=== PATIENT | female | born 1995 | race Caucasian/White ===

== ENCOUNTER 2020-08-25 08:02 | Outpatient (CLI) | payer OTHER, SELFPAY ==
--- NOTE | 2020-08-25 08:31 | PC.NURSE ---
RECEIVED covid VACCINE. 5 MINUTES AFTER DEVELOPED DIZZINESS FLUSHING DIAPHORESIS PLACED SUPINE VITALS 145-20-140/95 100% RA NO SOB NOTED TNGING TO EXTREMITES 911 CALLED CARE TRANSFERED TO EMS REPORT CALLED TO [facility] ER
--- NOTE | 2020-08-25 08:40 | PC.NURSE ---
FEELING BETTER IS GOING TO HAVE HER MOTHER COME GET HER
== END 2020-08-25 08:03 | disposition home or self-care (01) ==
LOC: ANHCOVIDVC 08:02
PROVIDERS: PCP Otolaryngology
DX: Z23 Encounter for immunization (principal)
CPT/HCPCS: 0001A; 91300

== ENCOUNTER 2020-09-15 08:01 | Outpatient (CLI) | payer OTHER, SELFPAY ==
--- NOTE | 2020-09-15 08:17 | PC.NURSE ---
received COVID vaccine # 2 When she received # 1 had and episode of rapid heartrate and feeling funny Had same issue this time resting in room 1 HR 145 resp20 pulse ox 100 % RA BP 131/88 Boyfriend at bedside taking ater by mouth. Vitals 0820 HR 86 Resp 20 BP 130/76 Pulse ox 100 %
== END 2020-09-15 08:02 | disposition home or self-care (01) ==
LOC: ANHCOVIDVC 08:01
PROVIDERS: PCP Family Medicine
DX: Z23 Encounter for immunization (principal)
CPT/HCPCS: 0002A; 91300

== ENCOUNTER 2020-11-29 19:23 | Emergency (ER) | payer OTHER, SELFPAY ==
[2020-11-29] VITALS (7 sets, daily range): BP systolic 110–161; BP diastolic 80–102; PULSE 90–138; RESP 10–19; TEMP 37.3; O2SAT 96–100
--- NOTE | 2020-11-29 21:23 | ED.GENADULT ---
HPI - General Adult General Chief complaint: Shortness of Breath/Dyspnea Stated complaint: difficulty breathing Time Seen by Provider: 11/29/20 20:42 Source: patient and family Mode of arrival: ambulatory Limitations: no limitations History of Present Illness HPI narrative: 25-year-old with a history of asthma, Ana's thyroiditis, anxiety here with complaints of shortness of breath. Patient states that few hours ago she was unable to catch her breath. She also complains of mild cough which is nonproductive. She denies any fever or chills. The time she came into the ER room she states that she is feeling much better. No history of fever or chills. Onset (ago): hour(s) (2) Severity: mild Pain Consistency: now resolved Exacerbating factors: none Associated symptoms: denies other symptoms Related Data Home Medications Medication Instructions Recorded Confirmed levonorgestrel 20 mcg/24 hours (6 1 device INTRAUTERINE ONCE 09/08/20 09/08/20 yrs) 52 mg intrauterine device Allergies Allergy/AdvReac Type Severity Reaction Status Date / Time No Known Allergies Allergy Verified 11/29/20 20:33 Review of Systems Review of Systems: All systems reviewed & are unremarkable except as noted in HPI and below Constitutional: Constitutional: Reports no additional constitutional complaints Eyes: Eyes: Reports no additional eye complaints Cardiovascular: Cardiovascular: Reports no additional cardiovascular complaints Respiratory: Respiratory: Reports as per HPI Gastrointestinal: Gastrointestinal: Reports no additional gastrointestinal complaints Musculoskeletal: Musculoskeletal: Reports no additional musculoskeletal complaints Integumentary/Breasts: Skin/Breast: Reports system reviewed and no additional complaints, except as docu Neurologic: Reports system reviewed and no additional complaints, except as documented Psychiatric: Psychiatric: Reports no additional psychiatric complaints [facility] Past Medical History Medical History Nontoxic single thyroid nodule 2017 u/s thyroid: no nodule Recurrent vaginitis Family History Family History Father Hypertension Mother Asthma Grandparent Family history of malignant neoplasm of breast Other Family history of migraine headaches Social History Social History Smoking status: Never smoker Gender identity (if verbalized by the patient): Female Exam Narrative: Exam Narrative: GENERAL: Well-appearing, well-nourished, and in no acute distress. HEAD: Normocephalic, atraumatic. EYES: PERRLA and EOMI. NECK: Supple. CHEST: Clear to auscultation. No respiratory distress. HEART: Regular rate and rhythm. No murmur heard. Normal peripheral pulses. ABDOMEN: Soft, nontender, nondistended, normal active bowel sounds. EXTREMITIES: Normal range of motion. No edema. SKIN: Warm, dry, no rash. NEURO: No focal deficits. Alert and oriented x3. PSYCH: Normal mood and affect. Course Course Emergency Course: Patient presently having no complaints at this time. Patient states that she ran out of her inhaler advised her to use albuterol inhaler as needed. Vital Signs Vital signs: Vital Signs Temperature 37.3 C 11/29/20 19:24 Pulse Rate 138 H 11/29/20 19:24 Respiratory Rate 18 11/29/20 19:24 Blood Pressure 161/102 H 11/29/20 19:24 Pulse Oximetry 100 11/29/20 19:24 Temperature 37.3 C 11/29/20 19:24 Pulse Rate 110 H 11/29/20 20:32 Respiratory Rate 12 11/29/20 20:31 Blood Pressure 123/93 H 11/29/20 20:31 Pulse Oximetry 100 11/29/20 20:31 Medical Decision Making Vital Signs Vital Signs: Vital Signs Temperature 37.3 C 11/29/20 19:24 Pulse Rate 138 H 11/29/20 19:24 Respiratory Rate 18 11/29/20 19:24 Blood Pressure 161/102 H 11/29/20 19:24 Pulse Oximetry 100
== END 2020-11-29 21:40 | disposition home or self-care (01) ==
PROVIDERS: Emergency Provider Family Medicine; PCP Family Medicine
DX: J45.909 Unspecified asthma, uncomplicated (principal); E06.3 Autoimmune thyroiditis
CPT/HCPCS: 99283

== ENCOUNTER → 2023-01-25 09:10 | Outpatient (CLI) | payer SELFPAY ==
--- NOTE | ~2023-01-25 | US_ITS ---
EXAMINATION: US OB <= 14 weeks fetus DATE: 01/25/2023 09:35 INDICATION: Gestational dating and viability TECHNIQUE: Real-time transabdominal and transvaginal obstetric ultrasound. FINDINGS: No prior studies for comparison. The uterus measures 10.5 x 6.8 x 8.6 cm. There is an intrauterine gestational sac, with pole id entified. The crown rump length measures 3.42 cm, which correlates with a estimated gestational age of 10 weeks 2 days. heart tones are identified measuring 168 BPM. The ovaries are within norm al limits. No free fluid in the pelvis. IMPRESSION: 1. SL IUP with an EGA of 10 weeks, 2 days (EDC by current ultrasound of 08/21/2023). Reviewed, dictated and finalized at location B. IMPRESSION: 1. SL IUP with an EGA of 10 weeks, 2 days (EDC by current ultrasound of 08/21/19 24).
== END ==
PROVIDERS: PCP Advanced Practice Midwife; Visit Provider Advanced Practice Midwife
DX: O36.80X0 Pregnancy with inconclusive fetal viability, not applicable or unspecified (principal); Z3A.10 10 weeks gestation of pregnancy
CPT/HCPCS: 76801

== ENCOUNTER 2023-08-12 17:14 | Inpatient (IN) | payer OTHER, SELFPAY ==
[2023-08-12] VITALS (24 sets, daily range): BP systolic 120–146; BP diastolic 71–99; PULSE 64–106; TEMP 36.8–37.1
[2023-08-12 17:44] LABS: Basophils Percent Auto 0.6 % (0.2-1.2); Eosinophils Absolute Auto 0.1 K/mm3 (0-0.3); Eosinophils Percent Auto 1.4 % (0-4.4); Hematocrit 42.5 % (37.0-47.0); Hemoglobin 13.7 g/dL (12.0-15.0); Immature Granulocyte Absolute 0.07 K/mm3 (0.00-0.031); Lymphocytes Absolute Auto 1.85 K/mm3 (0.9-3.2); Lymphocytes Percent Auto 25.7 % (18.3-44.2); Mean Corpuscular HGB Conc 32.2 g/dl (32-36); Mean Corpuscular Hemoglobin 30.6 pg (26-34); Mean Corpuscular Volume 95.1 fl (80-100); Mean Platelet Volume 12.9 fl (7.4-10.4); Monocytes Absolute Auto 0.5 K/mm3 (0.1-0.6); Monocytes Percent Auto 7.4 % (2.6-8.5); Neutrophils Absolute Auto 4.6 K/mm3 (1.3-6.7); Neutrophils Percent Auto 63.9 % (45.5-73.1); Platelet Count Result 195 k/mm3 (150-375); Red Blood Count 4.47 M/mm3 (4.2-5.4); Red Cell Distribution Width 12.4 % (11.5-14.5); White Blood Count 7.2 K/mm3 (4.5-10.0)
[2023-08-12 17:51] LABS: Creatinine Urine 47.4 mg/dL; Total Protein Urine Random 9 mg/dL; Ur Ttl Prot Creatinine Ratio 0.19 mg/mg (0-0.20)
[2023-08-12 17:59] LABS: Alanine Aminotransferase 22 U/L (6-35); Albumin Level 3.7 g/dL (3.5-5.1); Alkaline Phosphatase 139 U/L (38-126); Anion Gap 8 mmol/L (4-12); Aspartate Amino Transferase 34 U/L (14-36); Bilirubin,Total 0.3 mg/dL (0.2-1.3); Blood Urea Nitrogen 15 mg/dL (7-17); Calcium 9.3 mg/dL (8.4-10.2); Carbon Dioxide 20 mmol/L (22-30); Chloride 103 mmol/L (98-107); Estimated Glomerular Filt Rate > 60; Glucose 83 mg/dL (65-110); Sodium 131 mmol/L (137-145); Uric Acid 5.4 mg/dL (2.5-7.5)
[2023-08-12 18:05] LABS: Appearance Urine Clear (Clear); Bilirubin Urine Negative (Negative); Blood Urine Negative (Negative); Color Urine Yellow (Yellow); Glucose Urine UA Negative (Negative); Ketones Urine Negative (Negative); Leukocyte Esterase Ur Negative LEU/UL (Negative); Nitrate Urine Negative (Negative); Protein Urine Negative (Negative); Urobilinogen Urine 0.2 mg/dL (<2.0); pH Urine 6.5 (5.0-9.0)
--- NOTE | 2023-08-12 18:08 | LDADM ---
This patient, Gloria Del Rio, was admitted to Labor/Delivery/Recovery 106 on 08/12/23 at 17:14. Plans for labor, pain management and were discussed with patient. Patient/family oriented to hospital policies and general routines including ID bracelet, bed and alarms, visiting hours, pain management, procedures, bathroom and other care routines, personal items, smoking policy, room service/diet and guest tray routines, security routines, and visiting hours. Patient/Family are encouraged to report perceived risks to care and to ask questions if they do not understand what they are told or what they should do. See OBIX for further documentation.
[2023-08-12 18:25] LABS: Add Urine Microscopic? NO
[2023-08-12] MEDS: LACTATED RINGERS 1,000 ML 125 ML IV CONT ×2 (18:28→21:46)
[2023-08-12] MEDS: OXYTOCIN 30 UNITS/NS 500 ML 30 UNITS/500 ML BAG IV CONT (18:29)
[2023-08-12] MEDS: AMPICILLIN 2 GM/NS 100 ML 2 GM/100 ML BAG IVPB (18:29)
--- NOTE | 2023-08-12 19:13 | WPDANESEPP ---
Anes - Eval Pre Procedure Procedure: Labor epudural Date/Time: 08/12/23 19:13 Pre Op Diagnosis: Labor Patient Data Age: 27 Gender: F Height: Weight: Allergies Allergy/AdvReac Type Severity Reaction Status Date / Time No Known Allergies Allergy Verified 07/01/23 16:30 Home Medications Medication Instructions Recorded Confirmed Type levothyroxine 75 mcg tablet 75 mcg PO DAILY #90 tabs 01/01/23 Rx Laboratory Tests 08/12/23 08/12/23 08/12/23 17:24 17:56 18:16 WBC 7.2 K/mm3 (4.5-10.0) RBC 4.47 M/mm3 (4.2-5.4) Hgb 13.7 g/dL (12.0-15.0) Hct 42.5 % (37.0-47.0) MCV 95.1 fl (80-100) MCH 30.6 pg (26-34) MCHC 32.2 g/dl (32-36) RDW 12.4 % (11.5-14.5) Plt Count 195 k/mm3 (150-375) MPV 12.9 H fl (7.4-10.4) Immature Gran % (Auto) 1.0 H % (0-0.5) Neut % (Auto) 63.9 % (45.5-73.1) Lymph % (Auto) 25.7 % (18.3-44.2) [place] % (Auto) 7.4 % (2.6-8.5) Eos % (Auto) 1.4 % (0-4.4) Baso % (Auto) 0.6 % (0.2-1.2) Lymph # (Auto) 1.85 K/mm3 (0.9-3.2) [place] # (Auto) 0.5 K/mm3 (0.1-0.6) Eos # (Auto) 0.1 K/mm3 (0-0.3) Baso # (Auto) 0.0 K/mm3 (0.0-0.1) Abs Immat Gran (auto) 0.07 H K/mm3 (0.00-0.031) Absolute Neuts (auto) 4.6 K/mm3 (1.3-6.7) Absolute Nucleated RBC 0.000 K/mm3 (0.0-0.012) Nucleated RBC % 0.0 % (0.0-0.2) Sodium 131 L mmol/L (137-145) Potassium 4.0 mmol/L (3.4-5.0) Chloride 103 mmol/L (98-107) Carbon Dioxide 20 L mmol/L (22-30) Anion Gap 8 mmol/L (4-12) BUN 15 mg/dL (7-17) Creatinine 0.70 mg/dL (0.7-1.0) Estim Creat Clear Calc Not Reportable Estimated GFR > 60 (59 - ) Glucose 83 mg/dL (65-110) Uric Acid 5.4 mg/dL (2.5-7.5) Calcium 9.3 mg/dL (8.4-10.2) Total Bilirubin 0.3 mg/dL (0.2-1.3) AST 34 U/L (14-36) ALT 22 U/L (6-35) Alkaline Phosphatase 139 H U/L (38-126) Total Protein 7.0 g/dL (6.3-8.2) Albumin 3.7 g/dL (3.5-5.1) Urine Color Yellow (Yellow) Urine Appearance Clear (Clear) Urine pH 6.5 (5.0-9.0) Ur Specific [place] 1.010 (1.001-1.035) Urine Protein Negative mg/dL (Negative) Urine Glucose (UA) Negative mg/dL (Negative) Urine Ketones Negative mg/dL (Negative) Ur Blood (Man) Negative (Negative) Urine Nitrate Negative (Negative) Urine Bilirubin Negative (Negative) Urine Urobilinogen 0.2 mg/dL (<2.0) Leukocyte Esterase Rfl Negative KARINA/UL (Negative) U Random Total Protein 9 mg/dL Urine Creatinine 47.4 mg/dL Protein/Creat Ratio 2 0.19 mg/mg (0-0.20) RPR Pending HIV 1&2 Ab/P24 Ag 4thGn Pending Patient hx anesthesia problems: none Family hx anesthesia problems: none Results Review: All pre-operative results and documents have been reviewed as part of the pre-operative evaluation. [facility] Past Medical History Medical History (Updated 08/12/23 @ 19:15 by Vera Beaver, HANDY WORKER) Gestational hypertension Ana's thyroiditis Nontoxic single thyroid nodule 2017 u/s thyroid: no nodule Recurrent vaginitis Family History Family History Father Hypertension Mother Asthma Grandparent Family history of malignant neoplasm of breast Other Family history of migraine headaches Social History Social History Smoking status: Never smoker Second hand tobacco smoke exposure: No Alcohol intake: current Simon
[2023-08-12 19:27] LABS: HIV 1/2 Ab P24 Ag Result Negative (Negative)
[2023-08-12] MEDS: AMPICILLIN 1 GM/NS 50 ML 1 GM/50 ML BAG IVPB (22:09)
--- NOTE | 2023-08-12 23:19 | PHAR ---
HOME Levothyroxine 75mg po once daily and Metronidazole 500mg po q12hr for 7 days verified in pharmacy and sent back to LDR.
[2023-08-13] VITALS (148 sets, daily range): BP systolic 90–151; BP diastolic 54–100; PULSE 59–124; RESP 16–18; TEMP 36.4–37; O2SAT 96–100; BMI 27.2
[2023-08-13] MEDS: AMPICILLIN 1 GM/NS 50 ML 1 GM/50 ML BAG IVPB ×3 (02:06→10:06)
[2023-08-13] MEDS: LACTATED RINGERS 1,000 ML 125 ML IV CONT ×2 (06:01→08:11)
--- NOTE | 2023-08-13 07:52 | WPDOBADMIT ---
Obstetrics - Admit Note Admission Note: record reviewed. No pertinent additions to the history and/or any subsequent changes in the physical findings that are not consistent with the expected course of the were found. Additions to the history and/or subsequent changes in the physical findings follow. Patient with leaking x 1 week. On exam, +ROM plus. afebrile mild contractions FHT's category I. 1 cm on admit, now 5/90/-2 BBOW noted and AROM with clear fluid. comfortable with epidural. Pitocin and amp going.
[2023-08-13 12:04] LABS: Rapid Plasma Reagin Non-Reactive (NonReactive)
--- NOTE | 2023-08-13 13:26 | PM.OBPRVD ---
OB - Vaginal Delivery Note Procedure Delivery date: 08/13/23 Events: Other (prolonged ROM) Induction method: Per Pitocin Protocol Delivery monitor: External FHT and External Uterine Route of delivery: Laceration Description: Perineal - 2nd Degree (with right labial extension(L shaped)) Delivery repair: vicryl (3-0 ) Specimen: Yes (placenta) Quantitative Blood Loss (ml): 150 Anesthesia type: Epidural Disposition: Floor Complications: No immediate complications Baby Date of : 08/13/23 Weeks of gestation at delivery: 39 gender: Male presentation: vertex position: Right Occiput Anterior Placenta delivery description: Spontaneous Cord Vessel Description: 3 Vessels and Delayed Cord Clamping score one minute: 8 score five minutes: 9
--- NOTE | 2023-08-13 13:28 | PM.OBDSVD ---
DS: Admitting Diagnosis Discharge Date 08/15/23 Admitting Diagnosis IUP 39 wks with prolonged ROM DS: Discharge Diagnosis Discharge Diagnosis (1) (normal spontaneous vaginal delivery): Code(s): O80 - Encounter for full-term uncomplicated delivery Status: Acute OB - DS: Summary OB Procedures : Ultrasound OB Procedures Intrapartum: Spontaneous Vag Delivery OB Procedures: : None Peripartum Data Delivery Method: Natural Vaginal Laceration Description: Perineal - 2nd Degree (with right labial extension(L shaped)) complications: none Status at Discharge Functional status at discharge: independent ambulation Overall status at discharge: patient is progressing back to baseline Time Spent with Patient Time attestation: Total time spent providing and/or coordinating discharge services: DS: Data Data Completed and Pending Labs on day of discharge: Labs from last 24 hours 08/12/23 08/12/23 08/12/23 18:16 17:56 17:24 WBC 7.2 RBC 4.47 Hgb 13.7 Hct 42.5 MCV 95.1 MCH 30.6 MCHC 32.2 RDW 12.4 Plt Count 195 MPV 12.9 H Immature Gran % (Auto) 1.0 H Neut % (Auto) 63.9 Lymph % (Auto) 25.7 [place] % (Auto) 7.4 Eos % (Auto) 1.4 Baso % (Auto) 0.6 Lymph # (Auto) 1.85 [place] # (Auto) 0.5 Eos # (Auto) 0.1 Baso # (Auto) 0.0 Abs Immat Gran (auto) 0.07 H Absolute Neuts (auto) 4.6 Absolute Nucleated RBC 0.000 Nucleated RBC % 0.0 Sodium 131 L Potassium 4.0 Chloride 103 Carbon Dioxide 20 L Anion Gap 8 BUN 15 Creatinine 0.70 Estim Creat Clear Calc Not Reportable Estimated GFR > 60 Glucose 83 Uric Acid 5.4 Calcium 9.3 Total Bilirubin 0.3 AST 34 ALT 22 Alkaline Phosphatase 139 H Total Protein 7.0 Albumin 3.7 Urine Color Yellow Urine Appearance Clear Urine pH 6.5 Ur Specific [place] 1.010 Urine Protein Negative Urine Glucose (UA) Negative Urine Ketones Negative Ur Blood (Man) Negative Urine Nitrate Negative Urine Bilirubin Negative Urine Urobilinogen 0.2 Leukocyte Esterase Rfl Negative U Random Total Protein 9 Urine Creatinine 47.4 Protein/Creat Ratio 2 0.19 RPR Non-reactive HIV 1&2 Ab/P24 Ag 4thGn Negative Blood Type B Positive Antibody Screen Negative Discharge Plan Discharge Attending physician on discharge: Lauren Garcia Consulting providers: Georgia Hayden; Vera Beaver; Ryan Vanessa Discharging Clinician: Lauren Garcia Anticipated Discharge Date/Time: 08/15/23 13:29 Patient Disposition: Home, Self-Care Activity: may shower and pelvic rest Diet: regular Discharge Instructions: Education: Mom and Baby Guide Given to: Mother Follow-Up: Call your delivering provider's office for an appointment to be seen in: call your OB to schedule follow up appointment Mom and baby should come to the [facility] for the follow-up appointment. Appointment Date/Time: August 17, 2023 at 11:00 am What to expect at your follow-up visit: Blood Pressure Check Physical Assessment Call [phone] if you are unable to keep your appointment time. BREAST CARE: * Wear a snug supportive bra. * For engorgement discomfort: Breast Feeding: * Apply warm moist washcloths * Express milk as needed to relieve engorgement * Wear loose clothing Bottle Feeding: * May apply ice packs * For sore nipples: * Identify correct latch-on * Apply warm moist washcloths before and after nursing * Air dry nipples after nursing * May apply Lansinoh cream to nipples PERINEAL CARE: * Until bleeding stops, use your april bottle after urinating * Change your pad frequently throughout the day * You may take sitz baths several times a day (fill your bathtub with warm water and soak for
[2023-08-13] MEDS: OXYTOCIN 30 UNITS/NS 500 ML 30 UNITS/500 ML BAG 125 UNITS IV CONT (13:35)
[2023-08-13] MEDS: BENZOCAINE 20% AER SPR (*SP) 56 GM CAN 1 SPRAY TOPICAL ×2 (16:04→16:13)
[2023-08-13] MEDS: WITCH HAZEL 40 PADS 1 PAD TOPICAL ×2 (16:05→16:13)
--- NOTE | 2023-08-13 16:17 | PC.NURSE ---
Patient transferred to post room #286 via wheel chair. Support person present. Oriented to unit, room, information board, rooming in, admission packet and security measures. Patient verbalizes understanding.
[2023-08-13] MEDS: DOCUSATE SODIUM 100 MG CAPSULE PO (16:56)
[2023-08-13] MEDS: IBUPROFEN 600 MG TABLET PO (16:56)
[2023-08-13] MEDS: LANOLIN (LANSINOH) 7.5 GM CREAM 1 APPLIC TOPICAL (16:56)
[2023-08-14 04:40] VITALS: BP 121/88; PULSE 77; TEMP 36.4
[2023-08-14 05:12] LABS: Hemoglobin 10.3 g/dL (12.0-15.0)
--- NOTE | 2023-08-14 07:36 | WPDANLDPN2 ---
Anes-Prog Note L&D Date/Time: 08/14/23 07:36 Comfortable throughout: labor and delivery Neuraxial method: epidural Epidural/Spinal procedure site: tender Neuro status: Neuro function grossly intact. Cardiovascular status: normal Respiratory status: normal Airway patency: baseline Mental status: baseline Post-Op hydration status: normal Vital Signs: Last Vital Signs Temp 36.4 C L 08/14/23 04:40 Pulse 77 08/14/23 04:40 Resp 16 08/13/23 20:40 BP 121/88 08/14/23 04:40 Pulse Ox 100 08/13/23 20:40 O2 Del Method Room Air 08/13/23 06:21 Pain score (VAS): 2/10 I/O: Intake & Output 08/13/23 08/13/23 08/14/23 15:59 23:59 07:59 Intake Total 550 1300 400 Output Total 250 1800 200 Balance 300 -500 200 Post-procedural complaints: none Patient feedback: Patient satisfied with anesthetic care.
[2023-08-14 07:50] VITALS: BP 135/84; PULSE 75; RESP 18; TEMP 36.5; O2SAT 99
--- NOTE | 2023-08-14 07:54 | P.PNOB_ITS ---
OB - PN: Subj Subjective Date/time seen: 08/14/23 07:45 Interval history: Doing well. Urinating without difficulty. Denies passing any large clots. Denies dizziness with ambulating. Tolerating po food and fluids. Bonding with . Patient comments: no complaints and pain well controlled [place] baby status: doing well [place] feeding status: breast and bottle feeding OB - PN: Obj Data Labs 08/14/23 04:28 08/12/23 17:24 Labs: Laboratory Results - last 24 hr 08/12/23 08/14/23 17:56 04:28 Hgb 10.3 L D Hct 31.0 L RPR Non-reactive OB - PN A/P Plan day: 1 Plan: routine care Time Spent With Patient Time: Total time spent is greater than 50% in coordination of care (as documented) at patient's floor/unit and/or counseling patient: Review of Systems Review of Systems: All systems reviewed & are unremarkable except as noted in HPI and below Exam Narrative: Alert and oriented. Mood is pleasant and cooperative. Perineum with minimal edema. Fundus firm and below umbilicus. Const: General: cooperative, healthy appearing, no acute distress and alert Orientation/consciousness: patient oriented x3 Limitations: no limitations Resp: Effort & Inspection: normal respiratory effort and able to speak in complete sentences Auscultation: clear to auscultation bilaterally Cardio: Rate: regular rate GI: Inspection: normal to inspection Auscultation: normal bowel sounds : General: Yes bladder normal to palpation External Female Exam: other (lochia WNL) Bimanual exam- vagina & uterus: bladder normal to palpation Other: Fundus firm and below U Skin: General skin exam: normal color and no rashes or lesions noted Neuro: General: patient oriented x3 and moves all extremities Cognition (Neuro): normal cognition Extrem: General: normal to inspection and no calf tenderness Psych: Appearance: grossly normal Mental Status: mental status grossly normal Affect: normal affect Thought process: Normal thought process present
--- NOTE | 2023-08-14 08:45 | PC.NURSE ---
Breast pump provided due to ineffective feeding. Instructions given on cleaning, care, usage, that there should be no pain, pumping schedule for milk production, collection, and storage of human milk. Patient was assessed for correct placement, flange size, to pump for comfort and nipple stretching/stimulation for adequate milk production every 3 hours (8 times in 24 hours) 1-2 times at night.
[2023-08-14] MEDS: MULTIVIT/MIN/PREN/FOL AC/IRON TABLET 1 TAB PO (08:54)
[2023-08-14] MEDS: DOCUSATE SODIUM 100 MG CAPSULE PO ×2 (08:54→17:03)
--- NOTE | 2023-08-14 09:38 | PC.NURSE ---
On 08/14/23, the student, Kely Carreno, provided care and completed [facility] documentation on this patient. I have reviewed the student's documentation and agree with the findings.
--- NOTE | 2023-08-14 11:51 | PC.NURSE ---
[id number] Introductions were made and purposefully rounded to assess for pumping needs as mother was initiated with pumping after Dr. Del Castillo rounded and assessed infant. Infant was supplemented with formula for lethargy . Mother has pumped without pain 65mls of milk for her . Called Dr. Del Castillo and received an order that mother can breastfeed, then check blood sugar after feeding. If blood sugar meets requirements, then doesn't need to be supplemented with formula. If needs supplementation mother will use the pumped breast milk unless physician order changes that plan. Mother verbalizes she is able to independently latch with appropriate positioning and alignment. She denies any nipple discomfort and is responsively . Mother is encouraged to call for assistance if her doesn?t latch, pain with latching, questions or concerns. Mother voiced understanding of information shared and RN NOEMI name written on the communication board for lacation services. Reported to the Primary RN.
[2023-08-14 12:05] VITALS: BP 128/81; PULSE 77; RESP 18; TEMP 37; O2SAT 99
[2023-08-14 15:15] VITALS: BP 136/95
[2023-08-14 20:50] VITALS: BP 134/93; PULSE 82; RESP 18; TEMP 36.8; O2SAT 98
[2023-08-15 01:36] VITALS: BP 131/99; PULSE 70
[2023-08-15 06:30] VITALS: BP 130/92; PULSE 85; RESP 16; TEMP 36.9; O2SAT 100
[2023-08-15 07:30] VITALS: BP 130/92; PULSE 85; RESP 16; TEMP 36.6; O2SAT 100
--- NOTE | 2023-08-15 07:46 | PM.OBPNVD ---
OB - PN: Subj Subjective Date/time seen: 08/15/23 07:46 Interval history: . No PIH sx Patient comments: no complaints and pain well controlled baby status: other (see pcp note) OB - PN: Obj Data Labs 08/14/23 04:28 08/12/23 17:24 OB - PN A/P Plan day: 2 Plan: routine care, discharge home, follow up 6 weeks (and 1 week BP check) and other (plans IUD for bc) Comments: Reviewed preeclampsia sx. Continue to monitor bp today. Time Spent With Patient Time: Total time spent is greater than 50% in coordination of care (as documented) at patient's floor/unit and/or counseling patient: Exam : Bimanual exam- vagina & uterus: other (Uterus firm, nt @U)
[2023-08-15 08:40] VITALS: BP 132/91; PULSE 78; O2SAT 96
[2023-08-15] MEDS: MULTIVIT/MIN/PREN/FOL AC/IRON TABLET 1 TAB PO (08:55)
[2023-08-15 11:45] VITALS: BP 128/90; PULSE 70; RESP 16; TEMP 36.8; O2SAT 97
[2023-08-15 17:25] VITALS: BP 134/88; PULSE 70; RESP 18; O2SAT 100
[2023-08-15] MEDS: DOCUSATE SODIUM 100 MG CAPSULE PO (17:26)
[2023-08-17 11:31] VITALS: BP 131/82; PULSE 88; RESP 18; TEMP 36.7; O2SAT 100
== END 2023-08-15 18:15 | disposition home or self-care (01) | DRG 807 ==
LOC: ANHLDR 08-13 13:32 → ANHOB2 08-13 16:20
PROVIDERS: Admitting Provider Obstetrics & Gynecology Gynecology; PCP Family Medicine; Visit Provider Obstetrics & Gynecology Gynecology
DX: O42.12 Full-term premature rupture of membranes, onset of labor more than 24 hours following rupture (principal); Z37.0 Single live birth; Z3A.39 39 weeks gestation of pregnancy; O70.1 Second degree perineal laceration during delivery; O99.284 Endocrine, nutritional and metabolic diseases complicating childbirth; E06.3 Autoimmune thyroiditis
CPT/HCPCS: 36415; 80053; 81003; 82570; 84112; 84156; 84550; 85014; 85018; 85025; 86592; 86703; 86850; 86900; 86901; 88307; A9270; G0432; J0290; J2590; J7120

== ENCOUNTER 2023-11-06 16:22 | Outpatient (CLI) | payer OTHER, SELFPAY ==
--- NOTE | ~2023-11-06 | US_ITS ---
EXAMINATION: US pelvic complete DATE: 11/06/2023 17:15 INDICATION: IUD CHECK TECHNIQUE: Multiple transabdominal sonographic images of the pelvis were obtained. COMPARISON: None. FINDINGS: Uterus: 6.9 x 3.8 x 5.1 cm. Endometrial complex appears thin but is obscured by the IUD, preventing a ccurate measurement. Right Ovary: 4.5 x 1.7 x 1.8 cm. Vascular flow is present. Left Ovary: 3.2 x 2.0 x 2.1 cm. Vascular flow is present. There is no free fluid in the pelvis. IMPRESSION: IUD, in good position. Otherwise normal transabdominal pelvic sonogram findings. Reviewed, dictated and finalized at location K. IMPRESSION: IUD, in good position. Otherwise normal transabdominal pelvic sonogram findings .
== END 2023-11-06 16:23 | disposition home or self-care (01) ==
LOC: ANHIMG 16:30
PROVIDERS: PCP Family Medicine; Visit Provider Advanced Practice Midwife
DX: Z30.431 Encounter for routine checking of intrauterine contraceptive device (principal)
CPT/HCPCS: 76856

== ENCOUNTER 2024-04-06 15:24 | Outpatient (CLI) | payer OTHER, SELFPAY ==
--- NOTE | ~2024-04-06 | US_ITS ---
EXAMINATION: US pelvic complete INDICATION: Evaluate IUD. Comparison:No prior studies for comparison. TECHNIQUE: Multiple transabdominal and endovaginal sonographic images of the pelvis performed. FINDINGS: The uterus measures 6.2 x 2.4 x 4.9 cm. IUD is present in the endometrium. The endometrial complex measures 4 mm. The right ovary measures 2.5 x 2.2 x 1.5 cm and the left ovary measures 1.8 x 1.4 x 1.4 cm. There ar e small follicles in each ovary. Normal doppler signal in both ovaries. There is no free fluid in the pelvis. There are no abnormal masses seen on either side. IMPRESSION: 1. Unremarkable pelvic ultrasound. Reviewed, dictated and finalized at location B. [employer]
== END 2024-04-06 15:25 | disposition home or self-care (01) ==
LOC: MICIMG 15:25
PROVIDERS: PCP Nurse Practitioner Women's Health; Visit Provider Nurse Practitioner Women's Health
DX: T83.32XA Displacement of intrauterine contraceptive device, initial encounter (principal)
CPT/HCPCS: 76856

== ENCOUNTER 2025-02-25 09:58 | Outpatient (CLI) | payer OTHER, SELFPAY ==
--- NOTE | ~2025-02-25 | US_ITS ---
EXAMINATION: US pelvic complete, 02/25/2025 10:02 CDT HISTORY: IUD strings Comparison: None Technique: Romeo-scale and color Doppler images were obtained. Findings: Uterus: Uterus anteverted 8.5 x 4 x 5.8 cm. . Endometrium 6 mm, IUD in appropriate location. Right Ovary:Right ovary 2.2 x 1.8 x 2.3 cm, no adnexal mass, normal flow. Left Ovary: Left ovary 1 x 1.6 x 1 cm, no adnexal mass, normal flow. Free Fluid: Minimal free fluid. Impression: IUD in appropriate location Reviewed, dictated and finalized at location P. Impression: IUD in appropriate location
== END 2025-02-25 09:59 | disposition home or self-care (01) ==
LOC: MICIMG 09:58
DX: Z30.431 Encounter for routine checking of intrauterine contraceptive device (principal)
CPT/HCPCS: 76856